=== PATIENT | female | born 1990 | race Hispanic/Latino ===

== ENCOUNTER 2016-10-21 21:31 | Emergency (ER) | payer OTHER ==
[2016-10-21 21:41] VITALS: BP 137/68; PULSE 76; RESP 16; TEMP 98.3; O2SAT 100
--- NOTE | 2016-10-21 21:53 | ED PDOC ---
HPI: General Adult Time Seen by Provider: 10/21/16 21:40 Chief Complaint (Nursing): Abnormal Skin Integrity Chief Complaint (Provider): Facial Swelling History Per: Patient History/Exam Limitations: no limitations Onset/Duration Of Symptoms: Hrs Current Symptoms Are (Timing): Still Present Additional Complaint(s): Laura Reyes, a 26 year old female, presents to the ED with facial swelling. The patient states that this morning she woke up with swelling to her face which progressively got worse. She reports that she was in [place] and while there she was given a shot of an unknown medication and was instructed to take benadryl. The patient states that while she was on her way home her symptoms worsened and she developed swelling around her eyes. Denies SOB and fever. Past Medical History Reviewed: Historical Data, Nursing Documentation, Vital Signs Vital Signs: Last Vital Signs Temp 98.3 F 10/21/16 21:36 Pulse 76 10/21/16 21:36 Resp 16 10/21/16 21:36 BP 137/68 10/21/16 21:36 Pulse Ox 100 10/21/16 21:58 - Medical History PMH: No Chronic Diseases - Family History Family History: States: Unknown Family Hx - Home Medications Home Medications: Ambulatory Orders Medication Instructions Recorded Methylprednisolone [Medrol Dose 4 mg PO DAILY #21 mg 10/21/16 Pack (21 tabs)] Naproxen [Naprosyn] 500 mg PO BID PRN #30 tab 10/21/16 - Allergies Allergies/Adverse Reactions: Allergies Allergy/AdvReac Type Severity Reaction Status Date / Time No Known Allergies Allergy Verified 10/21/16 21:36 Review of Systems Constitutional: Positive for: Other (Facial swelling.). Negative for: Fever Eyes: Positive for: Other (Swelling around the eyes.) Respiratory: Negative for: Shortness of Breath Physical Exam - Physical Exam Appears: Positive for: Non-toxic, No Acute Distress Skin: Positive for: Normal Color (Diffuse erthyema to face with mild periorbital swelling with tenderness; Some scaling noted to the nose.), Warm, Dry Neurologic/Psych: Positive for: Alert, Oriented, Gait - ECG O2 Sat by Pulse Oximetry: 100 (RA) Pulse Ox Interpretation: Normal Medical Decision Making Medical Decision Makin:40 Initial Impression: 26 year old female presenting with facial swelling. Scribe Attestation Documented by Heike Myles acting as a scribe for Magdaleno Lopez PA-C. Scribe Attestation All medical record entries made by the Scribe were at my direction and personally dictated by me. I have reviewed the chart and agree that the record accurately reflects my personal performance of the history, physical exam, medical decision making, and the department course for this patient. I have also personally directed, reviewed, and agree with the discharge instructions and disposition. Disposition - Clinical Impression Clinical Impression: [place] - Patient ED Disposition Is Patient to be Admitted: No - Disposition Disposition: Routine/Home Disposition Time: 21:55 Condition: STABLE Prescriptions: Methylprednisolone [Medrol Dose Pack (21 tabs)] 4 mg PO DAILY #21 mg Naproxen [Naprosyn] 500 mg PO BID PRN #30 tab PRN Reason: Pain Instructions: [place] (ED) Forms: [facility] ED School/Work Excuse Print Language: CROATIAN
== END 2016-10-21 22:13 | disposition home or self-care (01) ==
LOC: H.ER 21:31
DX: L55.9 Sunburn, unspecified (principal)